=== PATIENT | female | born 1960 | race Caucasian/White ===

== ENCOUNTER 2017-08-22 12:11 | Emergency (ER) | payer OTHER ==
[~2017-08-22] VITALS: Ht 152.4 cm; Wt 72.6 kg
[2017-08-22] MEDS ORDERED: CLARITIN10 MG PO (15:06)
[2017-08-22] MEDS ORDERED: MEDROLPACK PO (15:06)
[2017-08-22] MEDS ORDERED: FLONASE ALLERG9.9 ML NASAL (15:06)
[2017-08-22] MEDS ORDERED: SYMBICORT 16010.2 GM IH (15:06)
[2017-08-22] MEDS ORDERED: ZITHROMAX500 MG PO (15:06)
[2017-08-22] MEDS ORDERED: VENTOLIN HFA18 GM IH (15:06)
== END 2017-08-22 15:10 | disposition home or self-care (01) ==
LOC: ER 12:11
DX: J06.9 Acute upper respiratory infection, unspecified (principal)